=== PATIENT | female | born 1950 | race Two or more races ===

== ENCOUNTER 2019-10-10 06:05 | Day surgery (SDC) | payer OTHER ==
[2019-10-10] VITALS (14 sets, daily range): BP systolic 96–153; BP diastolic 49–71
[~2019-10-10] VITALS: Ht 152.4 cm; Wt 75.3 kg
[~2019-10-10 06:05] MED LIST: LISINOPRIL10 MG ORAL; LOPRESSOR HCT1 EAC3 ORAL; ceFAZolin 1gm IVPB IVPB ONE; celeBREX 200mg Cap **SURGERY PATIENTS ONLY ORAL ONE; oxyCONTIN 20mg tab ORAL ONE
[2019-10-10] MEDS ORDERED: LR 1000ml 1,000 ML IVLG SCH (07:06)
--- NOTE | 2019-10-10 07:10 | Anethesia Preoperative Eval ---
Anesthesia Pre-op PMH/ROS General Date of Evaluation: Oct 10, 2019 Time of Evaluation: 07:36 Anesthesiologist: Sanjay ASA Score: ASA 3 Mallampati Score Class I : Soft palate, uvula, fauces, pillars visible Class II: Soft palate, uvula, fauces visible Class III: Soft palate, base of uvula visible Class IV: Only hard plate visible Mallampati Classification: Class II Surgeon: Srini Diagnosis: L Shoulder Pain Surgical Procedure: L Shoulder Arthroscopy Anesthesia History: none Family History: no anesthesia problems Allergies: Coded Allergies: No Known Allergies (Unverified , 10/08/19) Medications: see eMAR Patient NPO?: Yes Past Medical History Cardiovascular: Reports: HTN Neurologic/Psychiatric: Reports: depression/anxiety HEENT: Reports: cataract (L), cataract (R) Other: obesity - BMI 33 PSxH Narrative: R Wrist SX, Eye SX Anesthesia Pre-op Phys. Exam Physician Exam Last Vital Signs Date Time Temp Pulse Resp B/P (MAP) Pulse Ox O2 Delivery O2 Flow Rate FiO2 10/10/19 06:55 Room Air 10/10/19 06:50 97.3 72 18 153/68 97 Constitutional: NAD Neurologic: CN 2-12 intact Cardiovascular: RRR Respiratory: CTA Gastrointestinal: S/NT/ND Airway Exam Mallampati Score: Class II MO: limited ROM: limited Teeth: missing, intact Anesthesia Pre-op A/P Risk Assessment & Plan Assessment: ASA 3 Plan: GA, SED, Supraclavicular Block Status Change Before Surgery: No Pre-Antibiotics Dru Gram Ancef IV Given Within 1 Hr of Incision: Yes Time Given: 08:16 Jhoan Grace MD Oct 10, 2019 07:10
--- NOTE | 2019-10-10 07:12 | Immediate Post-Op Evaluation ---
Immediate Post-Op Evalulation Immediate Post-Op Evalulation Procedure: L Shoulder Arthroscopy Date of Evaluation: Oct 10, 2019 Time of Evaluation: 10:59 IV Fluids: 900 LR Blood Products: 0 Estimated Blood Loss: 30 Urinary Output: 0 Blood Pressure Systolic: 106 Blood Pressure Diastolic: 55 Pulse Rate: 59 Respiratory Rate: 16 O2 Sat by Pulse Oximetry: 99 Temperature (Fahrenheit): 97.2 Pain Score (1-10): 2 Nausea: No Vomiting: No Complications 0 Patient Status: awake, reacts, patent, extubated, none Hydration Status: adequate Dru Gram Ancef IV Given Within 1 Hr of Incision: Yes Time Given: 08:16 Jhoan Grace MD Oct 10, 2019 07:11
--- NOTE | 2019-10-10 07:12 | 48 Hour Post Anesthesia Eval ---
Post Anesthesia Evaluation Procedure: L Shoulder Arthroscopy Date of Evaluation: Oct 10, 2019 Time of Evaluation: 13:12 Blood Pressure Systolic: 161 0: 72 Pulse Rate: 63 Respiratory Rate: 18 Temperature (Fahrenheit): 98 O2 Sat by Pulse Oximetry: 99 Airway: patent Nausea: No Vomiting: No Pain Intensity: 1 Hydration Status: adequate Cardiopulmonary Status: Stable Mental Status/LOC: patient returned to baseline Follow-up Care/Observations: 0 Post-Anesthesia Complications: 0 Follow-up care needed: ready to discharge Jhoan Grace MD Oct 10, 2019 07:12
[2019-10-10] MEDS ORDERED: Ketorolac 30mg Inj IV PRN ×2 (07:15)
[2019-10-10] MEDS ORDERED: DiphenhydrAMINE 50mg/ml Inj IVP PRN (07:15)
[2019-10-10] MEDS ORDERED: Meperidine 25mg/0.5ml Inj (FOR RIGORS ONLY) IV PRN (07:15)
[2019-10-10] MEDS ORDERED: HYDROcodone/Acetamin 5/325 tab ORAL PRN ×2 (07:15→08:00)
[2019-10-10] MEDS ORDERED: oxyCODONE HCL/Acetaminophen 5/325mg ORAL PRN (07:15)
[2019-10-10] MEDS ORDERED: HYDROcodone/Acetamin 7.5/325 tab ORAL PRN (07:15)
[2019-10-10] MEDS ORDERED: fentaNYL 100 mcg/2 mL IV PRN (07:15)
[2019-10-10] MEDS ORDERED: Labetalol 5mg/ml 20ml vial IV PRN (07:15)
[2019-10-10] MEDS ORDERED: Hydromorphone 0.5mg/0.5ml inj IVP PRN (07:15)
[2019-10-10] MEDS ORDERED: Atropine Sulfate 0.4mg/ml inj IVP PRN (07:15)
[2019-10-10] MEDS ORDERED: LORazepam Inj 2mg/ml 1ml IV PRN (07:15)
[2019-10-10] MEDS ORDERED: Midazolam 2mg/2ml Inj IVP PRN (07:15)
[2019-10-10] MEDS ORDERED: Metoclopramide 10mg/2ml Inj IVP PRN (07:15)
[2019-10-10] MEDS ORDERED: Kenalog-40 1ml Vial ONE (07:22)
[2019-10-10] MEDS ORDERED: EPINEPHrine 1mg/1ml Amp ONE ×2 (07:23→07:25)
[2019-10-10] MEDS ORDERED: Duramorph PF 5mg/10ml amp ONE (07:23)
[2019-10-10] MEDS ORDERED: Sodium Chloride 10ml vial INJ ONE (07:24)
[2019-10-10] MEDS ORDERED: Lidocaine 1% MPF 10mg/ml 5ml ONE (07:24)
[2019-10-10] MEDS ORDERED: Ropivacaine 5mg/ml Vial 20ml INJ ONE (07:25)
[2019-10-10] MEDS ORDERED: LR 1000ml ONE (07:30)
[2019-10-10] MEDS ORDERED: Sterile Water Irrig 1000ml IRRIG ONE (07:30)
[2019-10-10] MEDS ORDERED: NS Irrig 2000ml IRRIG ONE (07:30)
--- NOTE | 2019-10-10 07:57 | Pre-Procedure Note/Attestation ---
Pre-Procedure Note/Attestation Complete Prior to Procedure Planned Procedure: left Procedure Narrative: shoulder arthrscopy, sad, rc repair Indications for Procedure Pre-Operative Diagnosis: left shoulder rct Attestation I attest that I discussed the nature of the procedure; its benefits; risks and complications; and alternatives (and the risks and benefits of such alternatives ), prior to the procedure, with the patient (or the patient's legal sales representative public utilities). I attest that, if there was a reasonable possibility of needing a blood transfusion, the patient (or the patient's legal sales representative public utilities) was given the [facility] standardized written summary, pursuant to the [place] Blood Safety Act ([place] Health and Safety Code # 1645, as amended). I attest that I re-evaluated the patient just prior to the surgery and that there has been no change in the patient's H&P, except as documented below: Clovis Milligan MD Oct 10, 2019 07:57
--- NOTE | 2019-10-10 07:58 | Operative Note - PDOC ---
Operative Note Operative Note Pre-op Diagnosis: left shoulder rct Procedure: see op report Post-op Diagnosis: same as pre-op plus Operative Findings: consistent w/pre-op dx studies Anesthesia: regional Specimen: none Complications: none Condition: stable Estimated Blood Loss: none Implant(s) used?: Yes Clovis Milligan MD Oct 10, 2019 07:58
[2019-10-10] MEDS ORDERED: HYDROmorphone 1mg/ml Carpuject SUBQ PRN (08:00)
[2019-10-10] MEDS ORDERED: Tylenol #3 tab (300mg/30mg) ORAL PRN (08:00)
[2019-10-10] MEDS ORDERED: D5 1/2NS 1,000 ML IV SCH (08:00)
[2019-10-10] MEDS ORDERED: NS Irrig 4000ml IRRIG ONE ×13 (08:31→10:18)
--- NOTE | 2019-10-10 20:15 | Operative Note - Dictated ---
DATE OF OPERATION: 10/10/2019 PREOPERATIVE DIAGNOSES: 1. Left shoulder full-thickness rotator cuff tear. 2. Left shoulder full-thickness rotator cuff tear involving supraspinatus, infraspinatus tendon. 3. Left shoulder biceps tendon tear. 4. Hypertrophic bursal tissue. PROCEDURES: 1. Left shoulder extensive articular debridement. 2. Left shoulder biceps tenotomy. 3. Left shoulder arthroscopic rotator cuff repair. 4. Left shoulder subacromial decompression bursectomy. SURGEON: Clovis Milligan MD ANESTHESIA: Interscalene with general. INDICATION FOR PROCEDURE: The patient is a pleasant female who has got progressive left shoulder full-thickness tears noted on the MRI, failed conservative treatment, elected to undergo left shoulder arthroscopic rotator cuff repair. Risks, limitations, expectations, and complications of procedure discussed in detail including failure of the repair and fixation, risk of anesthesia, medical complications. She understood that we would attempt a repair would heal. There is no guarantees given her age. DESCRIPTION OF PROCEDURE: After informed consent was obtained, patient was brought to the operating room. The patient was placed under interscalene general anesthesia. Left shoulder was prepped and draped in a sterile manner. Time-out was performed. Inferolateral stab incision was then made. Trocar introduced in the glenohumeral joint. There was no chondral damage. Anterior labrum was intact along with the subscap. Superior labrum was intact. There was tearing along the biceps tendon along the bicipital tuberosity. The footprint of the greater tuberosity with supraspinatus, infraspinatus was completely devoid. At this point, the soft tissue lateral to the articular margin was debrided. Biceps tenotomy was performed. Once this was done, the camera was repositioned in the subacromial space. Complete bursectomy was performed to creat a subacromial space. Once that was done, an anchor was placed in the posterior margin of the greater tuberosity. Sutures were then passed. Unfortunately, the bone was very osteopenic and the suture anchor became displaced and therefore removed. At this point, a similar anchor was placed on the anterior margin of the greater tuberosity. Two mattress sutures were placed on the supraspinatus, which recreated the footprint. At this point, the laminar separation was reattached using two #5-0 wires. Now that the laminar tear was addressed, given the osteoporotic bone, it was felt that a knotless repair in the infraspinatus may be reasonable. Therefore, two #5-0 wires were then placed in a mattress fashion along the infraspinatus. These six sutures were then placed along with lateral row anchor. At this point, the camera was repositioned and it seemed like some of the infraspinatus was still detached. Attempt to secure this using a lateral fixation again was unsuccessful because of the osteopenia. The anchor could not gain fixation. Therefore, at this point, further attempts were not attempted given that there was concern that may cause further compromise of the other implants. At this point, the instruments were removed. Portal sites were closed with 3-0 Monocryl sutures. Steri-Strips and sterile dressing were applied. EBL: None. COMPLICATIONS: None. SPECIMENS: None. IMPLANTS: Include to [employer] arthroscopic rotator cuff anchors. Clovis Milligan M.D. DR: PEG JOB#: [id number] CC: [email or web address]
== END 2019-10-10 14:40 | disposition home or self-care (01) ==
LOC: SUR 06:05
DX: M75.122 Complete rotator cuff tear or rupture of left shoulder, not specified as traumatic (principal); S46.212A Strain of muscle, fascia and tendon of other parts of biceps, left arm, initial encounter; M85.812 Other specified disorders of bone density and structure, left shoulder; M81.0 Age-related osteoporosis without current pathological fracture; I10 Essential (primary) hypertension; E66.9 Obesity, unspecified; F32.9 Major depressive disorder, single episode, unspecified; F41.9 Anxiety disorder, unspecified; X58.XXXA Exposure to other specified factors, initial encounter; Y92.9 Unspecified place or not applicable; Z68.32 Body mass index [BMI] 32.0-32.9, adult
CPT/HCPCS: 29826; 29827; 29828; 94003; C1713; J0171; J0690; J1100; J1885; J2250; J2405; J2704; J2795; J7120; 94150